=== PATIENT | female | born 1955 | race Caucasian/White ===

== ENCOUNTER → 2016-04-30 | Outpatient (CLI) | payer BC ==
--- NOTE | 2016-04-30 17:22 | MA ---
Screening Digital Mammogram With Tomosynthesis Clinical Indications: Routine screening. Mother with breast cancer at 87, daughter with breast cancer at age 25. Comparison: Mammograms April 26, 2015, April 21, 2014, April 02, 2013, February 19, 2012, December 12, 2010, December 01, 2010, December 16, 2009, November 22, 2009. Technique: Standard cephalocaudal projections are obtained. Digital breast tomosynthesis was performe d in the MLO projection with reconstruction at 1.0 mm slice thickness and composite MLO views reconst ructed. This examination is processed by the [employer] computer aided detection system. Breast density: Type C: The breast tissue is heterogeneously dense, which may obscure small masses. Findings: CAD was reviewed. No suspicious calcifications, masses, or areas of architectural distorti on are identified. Heterogeneously dense breast parenchyma reduces sensitivity for noncalcified mass es. Impression: Negative mammogram. BI-RADS 1. Recommendation: Routine screening is recommended in one year, as long as physical examination is darleen ign in this patient with moderately dense breast parenchyma. [facility] will send a result letter to the patient. Negative mammography should not preclude additional workup of a clinically suspicious finding. The patient's information is entered into a reminder system with a target due date for her next mammo gram.
== END ==
LOC: FIMAGING 16:05
DX: Z12.31 Encounter for screening mammogram for malignant neoplasm of breast (principal); Z80.3 Family history of malignant neoplasm of breast
CPT/HCPCS: G0202

== ENCOUNTER → 2018-02-07 | Outpatient (CLI) | payer BC | LOC: FIMAGING 11:47 | PROVIDERS: ATTEND Family Medicine | DX: N95.0 Postmenopausal bleeding (principal); N85.8 Other specified noninflammatory disorders of uterus ==